=== PATIENT | female | born 1985 | race Caucasian/White ===

== ENCOUNTER 2016-05-11 12:03 | Emergency (ER) | payer OTHER ==
[~2016-05-11] VITALS: Ht 167.6 cm; Wt 54.4 kg
[~2016-05-11 12:03] MED LIST: ALBUTEROL0.09 MG/A2 INH; AMOXICILLIN500 M3 PO; AMOXICILLIN500 MG PO; AMOXIL500 MG PO; ANAPROX DS550 MG PO; ATARAX25 MG PO; AUGMENTIN 875 M1 TAB PO; AUGMENTIN 875875 MG PO; BACTRIM DS 8001 TA1 PO; CEFUROXIME AXE250 MG PO; CIPROFLOXACIN500 MG PO; CLARITIN10 MG PO; CLEOCIN150 MG PO; CLINDAMYCIN HC300 MG PO; CLINDAMYCIN300 MG PO; DAYPRO600 M1 PO; DELSYM30 MG/5 ML PO; DEPAKOTE250 MG PO; DOC-Q-LACE100 MG PO; DOLOBID500 MG PO; Elimite 5%60 GM T; FLAGYL500 MG PO; FLONASE0.05 MG/AC NS; FLUMADINE100 MG PO; HYDROCODONE BIT1 T11 PO; IRON CHELATED325 MG PO; KEFLEX500 MG; KEFLEX500 MG PO; LAMOTRIGINE25 M1 PO; LEVAQUIN500 M2 PO; LIDEX 0.05% GEL60 GM PO; LOTRISONE 0.05%1 CRE TP; MACROBID100 M1 PO; MOTRIN400 MG PO; MOTRIN600 MG PO; MOTRIN800 MG PO; Motrin,Rufen800 MG PO; NAPROSYN500 MG PO; NKHM; NORCO 325 MG-51 TAB PO; PEN-VEE K500 MG PO; PEN-VK500 MG PO; PENICILLIN VK500 MG PO; PENICILLIN-VK500 M1 PO; PERCOCET 325 MG1 TA2 PO; PERIDEX 480 ML480 ML PO; PERMETHRIN T; PRENATAL 1 MG +1 TAB PO; PRENATAL GUMMI1 EACH PO; PRENATAL1 TA1 PO; PYRIDIUM100 MG PO; PYRIDIUM200 MG PO; Percocet 325 MG1 TAB PO; Peridex 473 ML473 ML PO; QUETIAPINE FUM100 M2 PO; ROBAXIN750 MG PO; SEROQUEL200 MG PO; TRAMADOL HCL50 MG PO; TYLENOL W/CODEI1 TA2 PO; TYLENOL W/CODEI1 TA5 PO; TYLENOL325 M1 PO; ULTRAM50 MG PO; VIBRA-TAB100 MG PO; VICODIN 5/500 505 MG PO; VICODIN 500 MG-1 TAB PO; VISTARIL50 MG PO; ZANTAC150 MG PO; ZITHROMAX250 MG PO; ZOFRAN ODT4 MG SL; ZOFRAN4 MG PO; Zofran4 MG PO
[2016-05-11] MEDS ORDERED: BUPRENORPHINE HY8 MG SL (12:11)
[2016-05-11] MEDS ORDERED: AUGMENTIN 875875 MG PO (13:15)
[2016-07-01] MEDS ORDERED: LIDOCAINE HCL100 M1 MM (14:17)
[2016-07-01] MEDS ORDERED: NAPROSYN500 MG PO (14:17)
[2016-07-01] MEDS ORDERED: PENICILLIN VK500 MG PO (14:17)
[2016-07-01] MEDS ORDERED: Peridex 473 ML473 ML PO (14:17)
== END 2016-05-11 13:12 | disposition home or self-care (01) ==
LOC: ED 12:03
DX: K08.89 Other specified disorders of teeth and supporting structures (principal); F17.200 Nicotine dependence, unspecified, uncomplicated

== ENCOUNTER 2020-10-19 16:56 | Emergency (ER) | payer OTHER ==
[~2020-10-19] VITALS: Ht 170.1 cm; Wt 61.2 kg
[~2020-10-19 16:56] MED LIST changes: +BUPRENORPHINE HY8 MG SL; +LIDOCAINE HCL100 M1 MM
[2020-10-19 17:31] LABS: BASO # 0.1 10*3/uL (0.0-0.1); EOS # 0.2 10*3/uL (0.0-0.4); EOS % 3.8 % (1.0-4.0); HEMATOCRIT 30.2 % (37.0-47.0); LYMPH # 3.3 10*3/uL (1.3-4.4); LYMPH % 56.5 % (27.0-41.0); MEAN CELL VOLUME 81.8 fl (81.0-99.0); MEAN CORPUSCULAR HGB 25.7 pg (27.0-31.0); MEAN CORPUSCULAR HGB CONC 31.5 g/dl (33.0-37.0); MEAN PLATELET VOLUME 10.4 fl (9.6-12.3); MONO # 0.4 10*3/uL (0.1-1.0); MONO % 6.7 % (3.0-9.0); NEUT # 1.9 10*3/uL (2.3-7.9); NEUT % 31.8 % (47.0-73.0); PLATELET COUNT AUTOMATED 283 10*3/uL (130-400); RED BLOOD COUNT 3.69 10*6/uL (4.10-5.10); RED CELL DISTRI WIDTH 13.2 % (0-14.5); WHITE BLOOD COUNT 5.8 10*3/uL (4.8-10.8)
[2020-10-19 17:48] LABS: ALBUMIN 3.5 gm/dl (3.1-4.5); ALKALINE PHOSPHATASE 45 U/L (45-117); BUN 10 mg/dl (7-24); CHLORIDE 112 mmol/L (98-107); CREATININE 0.76 mg/dL (0.55-1.02); LIPASE 48 U/L (73-393); POTASSIUM 3.3 mmol/L (3.5-5.1); SGOT/AST 7 IU/L (3-35); SGPT/ALT 11 U/L (12-78); SODIUM 137 mmol/L (136-145); TOTAL PROTEIN 6.8 gm/dL (6.4-8.2)
[2020-10-19 17:51] LABS: TROPONIN I < 0.015 ng/ml (<0.045)
[2020-10-19] MEDS ORDERED: IBUPROFEN600 MG PO (20:01)
[2020-10-19] MEDS ORDERED: METHOCARBAMOL500 M1 PO (20:01)
== END 2020-10-19 20:05 | disposition home or self-care (01) ==
LOC: ED 16:56
PROVIDERS: Physician Assistant
DX: S13.9XXA Sprain of joints and ligaments of unspecified parts of neck, initial encounter (principal); S29.011A Strain of muscle and tendon of front wall of thorax, initial encounter; Z79.2 Long term (current) use of antibiotics; Z79.899 Other long term (current) drug therapy; Z87.442 Personal history of urinary calculi; V43.62XA Car passenger injured in collision with other type car in traffic accident, initial encounter; Y93.89 Activity, other specified; Y92.488 Other paved roadways as the place of occurrence of the external cause; Y99.8 Other external cause status